=== PATIENT | female | born 1935 | race Two or more races ===

== ENCOUNTER 2021-08-26 07:56 | Outpatient (CLI) | payer OTHER | END 2021-08-26 08:12 | disposition home or self-care (01) | LOC: TOM 07:56 | PROVIDERS: ATTEND Internal Medicine Gastroenterology | DX: K56.50 Intestinal adhesions [bands], unspecified as to partial versus complete obstruction (principal); R10.30 Lower abdominal pain, unspecified; R19.5 Other fecal abnormalities ==